=== PATIENT | female | born 1960 | race African-American/Black ===

== ENCOUNTER 2018-08-01 20:22 | Emergency (ER) | payer MEDICAID, OTHER ==
[~2018-08-01] VITALS: Ht 165.1 cm; Wt 66.7 kg
[2018-08-01] MEDS ORDERED: cloNIDine HCL 0.1 MG TAB PO ONE (20:45)
[2018-08-01 21:38] LABS: Basophils # (auto) 0 uL; Basophils % (auto) 0.5 % (0.0-2.0); Eosinophils # (auto) 0 uL; Eosinophils % (auto) 0.9 % (0.0-7.0); Hematocrit 42.1 % (36.0-46.0); Hemoglobin 13.6 g/dL (12.2-16.2); Lymphocytes # (auto) 1.9 uL; Lymphocytes % (auto) 40.1 % (10.0-50.0); Mean Corpuscular Hemoglobin 27.5 pg (28.0-32.0); Mean Corpuscular Hgb Conc. 32.3 g/dL (32.0-36.0); Mean Corpuscular Volume 85.1 fL (80.0-100.0); Monocytes # (auto) 0.3 uL; Monocytes % (auto) 6.2 % (0.0-12.0); Neutrophils # (auto) 2.5 uL; Neutrophils % (auto) 52.3 % (37.0-80.0); Platelet Count (auto) 170 10^3/uL (140-450); Red Blood Cells 4.94 10^6/uL (4.0-5.20); Red Cell Distribution Width 14.9 % (11.8-14.3); White Blood Cell 4.9 10^3/uL (4.4-10.8)
[2018-08-01 21:50] LABS: Albumin 4.2 g/dL (3.4-5.0); Anion Gap 7 (5-15); Blood Urea Nitrogen 7 mg/dL (7-18); Carbon Dioxide 27 mmol/L (21-32); Chloride 107 mmol/L (98-107); Glucose 81 mg/dL (74-106); Magnesium 2.3 mg/dL (1.6-2.6); Potassium 3.7 mmol/L (3.5-5.1); Sodium 141 mmol/L (136-145)
[2018-08-01 21:52] LABS: Alanine Aminotransferase 37 U/L (13-56); BUN/Creatinine Ratio 7.6; GFR African American 81 mL/min; GFR Non-African American 67 mL/min
[2018-08-01 22:01] LABS: Alkaline Phosphatase 54 U/L (45-117); Aspartate Aminotransferase 22 U/L (15-37); Bilirubin, Total 0.2 mg/dL (0.2-1.0); Total Protein 8.7 g/dL (6.4-8.2)
[2018-08-02] MEDS ORDERED: ACETAMINOPHEN 650 mg PER 20 mL UD PO ONE (00:30)
[2018-08-02 01:50] LABS: Alcohol, Urine < 3.0 mg/dL (0-5); Amphetamine Screen, Urine NEGATIVE (NEGATIVE); Barbiturate Scree,Urine NEGATIVE (NEGATIVE); Benzodiazephine Screen, Urine NEGATIVE (NEGATIVE); Cannabinoid Screen, Urine POSITIVE (NEGATIVE); Cocaine Screen, Urine NEGATIVE (NEGATIVE); Opiate Scree,Urine NEGATIVE (NEGATIVE); Phencyclidine Screen, Urine NEGATIVE (NEGATIVE); Urine Bacteria FEW /hpf (None Seen); Urine Blood Negative /uL (Negative); Urine Specific Gravity 1.009 (1.001-1.035); Urine WBC 2 /hpf (0 - 5)
[2018-08-02 04:19] VITALS: BP 135/90
== END 2018-08-02 05:27 | disposition home or self-care (01) ==
LOC: ER 20:22
DX: R51 Headache (principal); N39.0 Urinary tract infection, site not specified; Z87.820 Personal history of traumatic brain injury; I10 Essential (primary) hypertension
CPT/HCPCS: 36415; 70450; 80053; 80307; 81001; 83735; 84484; 85025; 93005; 94761

== ENCOUNTER 2020-05-02 10:21 | Emergency (ER) | payer MEDICAID ==
[~2020-05-02] VITALS: Ht 165.1 cm; Wt 63.5 kg
[2020-05-02 10:50] VITALS: BP 167/74
[2020-05-02] MEDS ORDERED: KETOROLAC TROMETH 60MG/2ML VIAL IM ONE (11:30)
== END 2020-05-02 12:00 | disposition home or self-care (01) ==
LOC: ER 10:21
DX: M77.8 Other enthesopathies, not elsewhere classified (principal); I10 Essential (primary) hypertension; F12.10 Cannabis abuse, uncomplicated; Z88.0 Allergy status to penicillin
CPT/HCPCS: 73030; 93005; 99283; J1885

== ENCOUNTER 2023-11-02 02:42 | Emergency (ER) | payer MEDICAID ==
[~2023-11-02] VITALS: Ht 165.1 cm; Wt 70.9 kg
[2023-11-02 02:54] VITALS: BP 165/66; PULSE 70; RESP 16; TEMP 98.1; O2SAT 96
[2023-11-02] MEDS ORDERED: LORA10CA PO (04:11)
[2023-11-02] MEDS ORDERED: PRED20TA2 PO (04:11)
[2023-11-02] MEDS: methylPREDNISolone SOD SUCC 125 MG/2 ML VL IM ONE (04:33)
[2023-11-02] MEDS: LORATADINE 10 MG TAB PO ONE (04:34)
== END 2023-11-02 04:53 | disposition home or self-care (01) ==
LOC: ER 02:42
DX: T78.49XA Other allergy, initial encounter (principal); I10 Essential (primary) hypertension; F15.90 Other stimulant use, unspecified, uncomplicated; Z98.890 Other specified postprocedural states; Z88.0 Allergy status to penicillin; Z79.899 Other long term (current) drug therapy; X58.XXXA Exposure to other specified factors, initial encounter
CPT/HCPCS: 96372; 99283; J2919